=== PATIENT | male | born 1960 | race Caucasian/White ===

== ENCOUNTER → 2022-11-03 | Outpatient (CLI) | payer BC | LOC: M WUC 13:31 | PROVIDERS: ATTEND Physician Assistant | DX: R06.2 Wheezing (principal) ==

== ENCOUNTER → 2022-11-16 | Outpatient (CLI) | payer BC | LOC: M PLAIMG 10:56 | PROVIDERS: ATTEND Physician Assistant Medical | DX: R05.9 Cough, unspecified (principal); R91.1 Solitary pulmonary nodule; I70.0 Atherosclerosis of aorta; I25.10 Atherosclerotic heart disease of native coronary artery without angina pectoris; R16.1 Splenomegaly, not elsewhere classified ==

== ENCOUNTER → 2023-12-14 | Outpatient (REF) | payer BC ==
[2023-12-15 14:41] LABS: PERCENT SATURATION 34.6 % (19.7-50.0)
[2023-12-15 14:44] LABS: FERRITIN 123.2 NG/ML (10.5-307.3)
== END ==
LOC: M LAB REF 12:27
PROVIDERS: ATTEND Physician Assistant Medical
DX: R53.83 Other fatigue (principal)

== ENCOUNTER → 2023-12-16 | Outpatient (CLI) | payer BC | LOC: M WUC 14:53 | PROVIDERS: ATTEND Physician Assistant Medical | DX: M54.50 Low back pain, unspecified (principal) ==

== ENCOUNTER → 2025-07-04 | Outpatient (REF) | payer BC ==
[2025-07-04 14:57] LABS: IRON (FE) 75.0 UG/DL (65-175); PERCENT SATURATION 30.6 % (19.7-50.0)
== END ==
LOC: M LAB REF 14:22
PROVIDERS: ATTEND Physician Assistant Medical
DX: R53.83 Other fatigue (principal)